=== PATIENT | female | born 2000 | race Two or more races ===

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

== ENCOUNTER 2022-09-28 11:56 | Emergency (ER) | payer MEDICAID ==
[~2022-09-28] VITALS: Ht 162.6 cm; Wt 68.1 kg
[2022-09-28 13:10] VITALS: BP 124/62
[2022-09-28 15:08] LABS: Urine Bacteria NONE SEEN /hpf (None Seen); Urine Blood Negative /uL (Negative); Urine Mucus FEW (None Seen); Urine Specific Gravity 1.027 (1.001-1.035); Urine WBC 3 /hpf (0 - 5)
[2022-09-28] MEDS ORDERED: MONT-8 PO (18:59)
[2022-09-28] MEDS ORDERED: PROM1SOL4 PO (18:59)
== END 2022-09-28 19:20 | disposition home or self-care (01) ==
LOC: ER 12:02
DX: B34.9 Viral infection, unspecified (principal); Z20.822 Contact with and (suspected) exposure to COVID-19
CPT/HCPCS: 36415; 81001; 87426; 87804